=== PATIENT | male | born 1950 | race Caucasian/White ===

== ENCOUNTER → 2019-10-06 | Outpatient (CLI) | payer OTHER | LOC: M.LAB 10:38 | PROVIDERS: ATTEND Internal Medicine Gastroenterology | DX: Z01.812 Encounter for preprocedural laboratory examination (principal); R63.4 Abnormal weight loss; R10.84 Generalized abdominal pain; Z11.59 Encounter for screening for other viral diseases ==

== ENCOUNTER 2020-06-04 16:22 | Emergency (ER) | payer OTHER ==
[~2020-06-04] VITALS: Ht 172.7 cm; Wt 83.9 kg
[2020-06-04 17:05] LABS: ABSOLUTE EOSINOPHILS 0.1 thou/uL (0.0-0.7); ABSOLUTE MONOCYTES 0.8 thou/uL (0.0-1.2); ABSOLUTE NEUTROPHILS 3.2 thou/uL (1.6-8.1); BASOPHILS 0.6 %; EOSINOPHILS 0.8 %; HEMATOCRIT 45.4 % (42.0-52.0); HEMOGLOBIN 15.2 gm/dL (14.0-18.0); LYMPHOCYTES 33.3 %; MCH 30.7 pg (26.0-34.0); MCHC 33.6 g/dL (28.0-37.0); MCV 91.5 fL (80.0-100.0); MONOCYTES 13.1 %; MPV 7.9 fl. (7.2-11.1); NUCLEATED RBCS 0 /100WBC; PLATELET COUNT* 216 thou/uL (150-400); POLYS 52.2 %; RBC 4.96 mil/uL (4.50-6.00); WBC 6.1 thou/uL (4.0-11.0)
[2020-06-04 17:10] LABS: CALCIUM 8.7 mg/dL (8.5-10.1); CREATININE 1.1 mg/dL (0.6-1.3); POTASSIUM 3.6 mmol/L (3.5-5.1)
[2020-06-04 18:21] VITALS: BP 125/65
[2020-06-04 18:36] LABS: MAGNESIUM 2.3 mg/dL (1.8-2.4); TOTAL BILIRUBIN 0.4 mg/dL (<0.1-1.0)
[2020-06-04 18:37] LABS: ALBUMIN 3.8 g/dL (3.4-5.0); TOTAL PROTEIN 7.1 g/dL (6.4-8.2)
[2020-06-04 19:26] LABS: APTT 23.3 Seconds (25.0-31.3); PROTIME 10.3 Seconds (9.20-11.50)
--- NOTE | 2020-06-05 12:20 | EKG ---
[place] [address] ELECTROCARDIOGRAM REPORT Name: LUCILA FUNEZ Room: [facility]#: [id number] Admission: 06/04/20 Attend Phys: Discharge: 06/04/20 Date of : 50 Date of Service: 06/04/20 1628 Report #: [id number] THIS REPORT FOR: //name// [facility] ED Test Date: 2020-06-04 Test Time: 16:28:18 Pat Name: LUCILA FUNEZ Department: Room: Gender: Nut [employer]inder: DIAMOND : 1950 Requested By: Ari Saenz Order Number: [id number] MD: Adam Collins Measurements Intervals Welcome Rate: 76 P: 55 LA: 144 QRS: 146 QRSD: 111 T: 52 QT: 390 QTc: 439 Interpretive Statements Sinus rhythm Probable left atrial enlargement Incomplete right bundle branch block Baseline wander in lead(s) V5 No previous ECG available for comparison Electronically Signed On 06-05-2020 12:20:27 CDT by Adam Collins [email or web address] <ELECTRONICALLY SIGNED> By: Adam Collins MD, FACC 06/05/20 1220 1628 1628 Adam Collins MD, FAC /EPI
== END 2020-06-04 18:22 | disposition left against medical advice (07) ==
LOC: M.ERS 16:22
PROVIDERS: Emergency Medicine Emergency Medical Services
DX: R07.89 Other chest pain (principal)

== ENCOUNTER → 2020-11-23 | Outpatient (CLI) | payer OTHER | LOC: M.MRI 12:31 | PROVIDERS: ATTEND Family Medicine | DX: E27.40 Unspecified adrenocortical insufficiency (principal) ==